=== PATIENT | male | born 1980 | race Caucasian/White ===

== ENCOUNTER → 2020-05-26 10:44 | Outpatient (CLI) | payer OTHER, SELFPAY ==
--- NOTE | 2020-05-26 | CA_ITS ---
APPROVED REPORT Exam: Exercise Treadmill Technologist: Yoly Barrios Ht: 5 ft 11 in Wt: 209 lbs BSA: 2.15 m2 HR: 91 bpm BP: 138/84 mmHg Indications: Chest pain Medical History Medications: Lisinopril,,,,, Zolpidem,,,,, Stress Test Details Test: Andria HR Resting HR: 94 bpm Max Heart Rate (APMHR): 179 bpm Max HR Achieved: 158 bpm Target HR (85% APMHR): 152 bpm % of APMHR: 88 Recovery HR: 112 bpm BP Resting BP: 138.0/84.0 mmHg Max BP: 170.0/88.0 mmHg Recovery BP: 128.0/91.0 mmHg ECG Clinical Reason for Termination: Fatigue Exercise duration: 09:00 min Highest Stage Achieved: Exercise capacity: 10.1 METs Stress ECG Conclusion Resting EKG: Normal sinus rhythm, NSSTTW Abnormalities Symptoms: Bilateral arm tingling during test. No chest pain. Arrhythmias/Ectopy: None ST-T Changes: < 1.[address] segment changes Conclusion: Negative stress test. Patient exercised on a andria protocol for 9 minutes to peak heart rate of 158 bpm (target heart rate 152 bpm) without chest pain, ST segment changes or arrhythmias. Total METS acheived 10.1 with peak Blood Pressure 170/88 mmHg. See the nuclear report for further information. Test Summary REST . . . . . . . Sitting REST 07:57 0.0 0.0 94 . 138/ 84 . . Stage 1 01:00 10.0 1.7 115 . . . . Stage 1 02:00 10.0 1.7 123 . . . . Stage 1 03:00 10.0 1.7 124 . 140/ 82 . . Stage 2 01:00 12.0 2.5 133 . . . . Stage 2 02:00 12.0 2.5 138 . . . . Stage 2 03:00 12.0 2.5 142 . 160/ 84 . . Stage 3 01:00 14.0 3.4 152 . . . . Stage 3 02:00 14.0 3.4 153 . . . . Stage 3 . . . . . . . Myoview Injected Stage 3 03:00 14.0 3.4 157 . 170/ 88 . Stop exercise at 09:00 RECOVERY 01:00 0.0 0.0 144 . 158/ 84 . . RECOVERY 02:00 0.0 0.0 122 . 158/ 84 . . RECOVERY 03:00 0.0 0.0 123 . 158/ 84 . . RECOVERY 04:00 0.0 0.0 115 . 158/ 84 . . RECOVERY 05:00 0.0 0.0 113 . 141/ 92 . . RECOVERY 06:00 0.0 0.0 110 . 141/ 92 . . RECOVERY 07:00 0.0 0.0 113 . 141/ 92 . . RECOVERY 08:00 0.0 0.0 114 . 128/ 91 . . RECOVERY 08:30 0.0 0.0 114 . 128/ 91 . . Electronically signed by : Regis Newman, 05/27/2020 06:46:55
--- NOTE | 2020-05-26 10:45 | NM_ITS ---
APPROVED REPORT Exam: Nuclear Stress Test Indication: Chest pain, Palpitations, HTN, Family history Patient Location: Outpatient Stress Tech: Yoly Barrios NM Tech:Barb Brown, ARRT, RT (R)(N) Ht: 5 ft 11 in Wt: 200 lbs HR: 91 bpm BP: 138/84 mmHg BSA: 2.11 m2 BMI: 27.8 History: Chest pain, Palpitations, HTN, Family history Procedure: Patient exercised on José Miguel protocol 9:00 minutes and sec, resting heart rate 91 bpm, resting blood pressure 138/84 mmHg, with exercise maximum heart rate achived was 158 bpm which is Greater than 85 % of the maximum predicted heart rate and blood pressure was 170/88 mmHg. Test was stopped due to leg fatigue. Patient denied any complaint of chest pain. Patient has Good exercise capacity, achieved 10.1 METs of workload on treadmill, the blood pressure response to exercise was Adequate. Electrocardiogram Resting electrocardiogram showed sinus rhythm, with exercise there is less than 1.[address] segment depression noted from the baseline EKG. The EKG portion of the exercise Myoview is negative for ischemia. Cardiac Stress and Resting SPECT Images: Cardiac Stress and Resting SPECT images were obtained using technetium 99m Myoview 29.0 mCi stress and 10.26 mCi at rest. Gated SPECT for the analysis of segmental wall motion and calculation of the ejection fraction also done. Cardiac stress and resting SPECT images show uniform myocardial activity without segmental perfusion abnormality, computer derived ejection fraction is 54% with no regional wall motion abnormality, right ventricle is normal size and contractility. Conclusion: 1. The EKG portion of the exercise Myoview is negative for ischemia, patient has good exercise capacity achieved 10.1 mets of workload on treadmill, the blood pressure response to exercise was adequate. 2. No scintigraphic evidence of reversible ischemia seen, computer derived ejection fraction is 54% with no regional wall motion abnormality, right ventricle is normal size and contractility. 3. Normal exercise Myoview study. Electronically signed by : Regis Newman, 05/28/2020 05:57:42
--- NOTE | 2020-05-26 10:45 | CA_ITS ---
APPROVED REPORT EXAM: Comprehensive 2D, Doppler, and color-flow Echocardiogram Plant Maintenance Technician: Sanjuanita Oneal RDCS Ht: 5 ft 11 in Wt: 209lbs BSA: 2.15 BP: 120/72 mmHg Indications: CP, FAMILY HISTORY 2D Dimensions LVOT 2.05 cm (M/F) 1.5-2.5 M-Mode Dimensions RVDd 2.55 cm (0.9-2.6) LA Diam 3.51 cm (1.9-4.0) LVDd 5.29 cm (3.5-5.7) Ao Diam 3.43 cm (2.0-3.7) LVDs 4.04 cm (3.5-5.7) IVSd 0.84 cm (0.6-1.1) PWd 0.78 cm (0.6-1.1) EF (Teich) 46.80% FS 23.60% EDV (Teich) 134.80 mL ESV (Teich) 71.70 mL LV Diastology E Decel Time 133.00 (160-240 msec) E/A Ratio 1.1 MED E' 7.80 (< 7 cm/sec) E'/MED E' Ratio 8.29 (>14) LAT E' 10.10 (<10 cm/sec) E/LAT E' Ratio 6.41 (>14) Mitral Valve MV E Max Marko. 65.00 (40-130 cm/s) MV A Velocity 60.00 (40-130 cm/s) E/A Ratio 1.08 MV Decel. Time 133.00 (160-240 ms) MV PHT 39.00 ms Tricuspid Valve TR P. Velocity 266.00 cm/s RAP Estimate 10.00 mmHg RVSP 38.30 mmHg Left Ventricle Left atrium is normal size, left ventricle is normal size, visually estimated ejection fraction 55% with no regional wall motion abnormality, diastolic parameters are inconclusive. Right Ventricle Right atrium and right ventricular qualitatively mildly enlarged with normal contractility. Aortic Valve Aortic valve is grossly normal, there is no aortic stenosis or aortic insufficiency. Mitral Valve Mitral valve is grossly normal, there is mild mitral regurgitation. Tricuspid Valve Tricuspid valve is grossly normal, there is mild tricuspid regurgitation, calculated right ventricular systolic pressure 38 mmHg. Pulmonic Valve Pulmonic valve is poorly visualized. Great Vessels Aortic root is normal size. Pericardium No significant pericardial effusion noted Conclusion 1. Normal left ventricular size, preserved left ventricular systolic function, visually estimated ejection fraction 55% with no regional wall motion abnormality, diastolic parameters are inconclusive. 2. Mildly enlarged right ventricle with normal contractility. 3. Mild mitral and tricuspid regurgitation, calculated right ventricular systolic pressure 38 mmHg. 4. No significant pericardial effusion noted. Electronically signed by : Regis Newman, 05/27/2020 05:39:09
--- NOTE | 2020-05-26 14:11 | HMH.ITSHM ---
Current Home Medications as stated by this patient Alfred Sandra or sales representative graphic art. []LORAZEPAM LISINOPRIL ZOLPIDEM
== END ==
PROVIDERS: PCP Family Medicine; Visit Provider Family Medicine
DX: R07.9 Chest pain, unspecified (principal); R94.31 Abnormal electrocardiogram [ECG] [EKG]
CPT/HCPCS: 78452; 93017; 93306; A9502